=== PATIENT | female | born 1970 | race Two or more races ===

== ENCOUNTER 2020-07-09 05:35 | Day surgery (SDC) | payer OTHER ==
[~2020-07-09 05:35] MED LIST: CHLOR-TRIMETON4 MG PO; GALZIN50 MG PO; MULTIVIT PO; VITAMIN D PO; [UNRECOGNIZED DRUG - OTHER] PO
[2020-07-09] MEDS ORDERED: IBU800 MG PO (11:15)
[2020-07-09] MEDS ORDERED: ZITHROMAX500 MG PO (11:15)
== END 2020-07-09 16:56 | disposition home or self-care (01) ==
LOC: CIR.AMB 05:35
PROVIDERS: ATTEND Obstetrics & Gynecology
DX: N85.6 Intrauterine synechiae (principal); Z20.828 Contact with and (suspected) exposure to other viral communicable diseases